=== PATIENT | female | born 1990 | race Caucasian/White ===

== ENCOUNTER 2017-05-14 18:35 | Emergency (ER) | END 2017-05-15 02:42 | disposition left against medical advice (07) ==

== ENCOUNTER 2018-02-27 19:25 | Emergency (ER) | payer OTHER ==
[~2018-02-27] VITALS: Ht 154.9 cm; Wt 57.9 kg
[2018-02-27 19:51] VITALS: Ht 154.9 cm; Wt 57.9 kg
[2018-02-27] MEDS ORDERED: ACETAMINOPHEN 500 MG TAB PO STA (21:39)
--- NOTE | 2018-02-27 21:50 | ERD ---
ER Documentation Chief Complaint Chief Complaint abdominal pain x 1 week. states 12 weeks HPI This is a 27-year-old female who presents here in the emergency department with complaints of pelvic pain for about a week. Also stated that she has vaginal bleeding in the last 24-48 hours. Also stated that she change vaginal pad twice in the last 24 hours. Stated that it was spotting to her vaginal pads. LMP: December 14, 2017. EDDIE: August 21, 2018. A1. Denies headache, dizziness, blurry vision, changes in vision, neck pain, neck stiffness, throat pain, difficulty swallowing, difficulty breathing lying flat, loss of bowel bladder control, urinary symptoms, vaginal discharge, trauma, injury, falls, recent surgery in the last 3 weeks, recent travel, recent long travel, leg pain, difficulty walking, numbness or tingling sensation, recent exposure to any illness, recent antibiotic use in the last 3 months, fever, chills. ROS All systems reviewed and are negative except as per history of present illness. Medications Home Meds Active Scripts Vit No.124/Iron/FA ( Vitamin Tablet) 1 Each Tablet, 1 EACH PO DAILY, #30 TAB Prov:TRINHILABANELIAR F 02/27/18 Acetaminophen* (Tylophen*) 500 Mg Capsule, 1 CAP PO Q6H PRN for PAIN AND OR ELEVATED TEMP, #20 CAP Prov:PASILABAN,ELIAR F 02/27/18 Allergies Allergies: Coded Allergies: No Known Drug Allergies (Verified Allergy, Unknown, 05/14/17) PMhx/Soc Medical and Surgical Hx: pt denies Medical Hx, pt denies Surgical Hx History of Surgery: No Anesthesia Reaction: No Hx Neurological Disorder: No Hx Respiratory Disorders: No Hx Cardiac Disorders: No Hx Psychiatric Problems: No Hx Miscellaneous Medical Probl: No Hx Alcohol Use: No Hx Substance Use: No Hx Tobacco Use: No Smoking Status: Never smoker Physical Exam Vitals Vital Signs Date Temp Pulse Resp B/P (MAP) Pulse Ox O2 O2 Flow FiO2 Time Delivery Rate 02/28/18 98.5 62 20 114/75 99 Room Air 00:17 (88) 02/27/18 98.2 68 18 102/58 99 19:51 (73) Physical Exam Const: No acute distress Head: Atraumatic Eyes: Normal Conjunctiva ENT: Normal External Ears, Nose and Mouth. Neck: Full range of motion. No meningismus. Resp: Clear to auscultation bilaterally Cardio: Regular rate and rhythm, no murmurs Abd: Soft, non tender, non distended. Normal bowel sounds. Negative Jensen sign. Negative Minda sign (heel jar test). Negative psoas sign. Negative Rovsing sign. Skin: No petechiae or rashes Back: No midline or flank tenderness. No CVA tenderness. Ext: No cyanosis, or edema Neur: Awake and alert. No neurological deficits. Psych: Normal Mood and Affect Result Diagram: 02/27/18224302/27/182243 Results 24 hrs Laboratory Tests Test 02/27/18 22:44 White Blood Count 7.2 10^3/ul Red Blood Count 4.05 10^6/ul Hemoglobin 12.8 g/dl Hematocrit 37.6 % Mean Corpuscular Volume 92.8 fl Mean Corpuscular Hemoglobin 31.6 pg Mean Corpuscular Hemoglobin Concent 34.0 g/dl Red Cell Distribution Width 13.1 % Platelet Count 316 10^3/UL Mean Platelet Volume 9.7 fl Immature Granulocytes % 0.100 % Neutrophils % 58.5 % Lymphocytes % 33.3 % Monocytes % 5.8 % Eosinophils % 1.9 % Basophils % 0.4 % Nucleated Red Blood Cells % 0.0 /100WBC Immature Granulocytes # 0.010 10^3/ul Neutrophils # 4.2 10^3/ul Lymphocytes # 2.4 10^3/ul Monocytes # 0.4 10^3/ul Eosinophils # 0.1 10^3/ul Basophils # 0.0 10^3/ul Nucleated Red Blood Cells # 0.0 10^3/ul Urine Color COLORLESS Urine Clarity CLEAR Urine pH 7.0 Urine Specific Gibson 1.002 Urine Ketones NEGATIVE mg/dL Urine Nitrite NEGATIVE mg/dL Urine Bilirubin NEGATIVE mg/dL Urine Urobilinogen NEGATIVE mg/dL Urine Leukocyte Esterase NEGATIVE Jennifer/ul Urine Microscopic RBC 1 /HPF Urine Microscopic WBC 1 /HPF Urine Squamous Epithelial Cells FEW /HPF Urine Bacteria FEW /HPF Urine Hemoglobin 2+ mg/dL Urine Glucose NEGATIVE mg/dL Urine Total Protein NEGATIVE mg/dl Sodium Level 139 mmol/L Potassium Level 3.9 mmol/L Chloride Level 102 mmol/L Carbon Dioxide Level 25 mmol/L Anion Gap 12 Blood Urea Nitrogen 9 mg/dl Creatinine 0.43 mg/dl Est Glomerular Filtrat Rate mL/min > 60 mL/min Glucose Level 91 mg/dl Calcium Level 9.1 mg/dl Total Bilirubin 0.2 mg/dl Direct Bilirubin 0.00 mg/dl Indirect Bilirubin 0.2 mg/dl Aspartate Amino Transf (AST/SGOT) 20 IU/L Alanine Aminotransferase (ALT/SGPT) 15 IU/L Alkaline Phosphatase 68 IU/L Total Protein 7.2 g/dl Albumin 4.2 g/dl Globulin 3.00 g/dl Albumin/Globulin Ratio 1.40 Amylase Level 135 U/L Lipase 49 U/L Beta HCG, Quantitative 38807.0 mIU/ml Current Medications Medications Dose Sig/Maribel Start Time Status Last (Trade) Ordered Route PRN Stop Time Admin Dose Reason Admin Sodium 1,000 ml @ Q1H ONCE 02/27/18 DC 02/27/18 Chloride 1,000 mls/hr IV 22:00 22:49 02/27/18 22:59 500 mg ONCE STAT 02/27/18 DC 02/27/18 Acetaminophen PO 21:39 23:02 (Tylenol 02/27/18 Tab) 21:45 Procedures/MDM Diagnostic tests: Urinalysis: Reviewed. Culture urine: Sent. Blood works: Reviewed. Beta-hCG quantitative: 12,000. Type and Rh: O+. OB ultrasound: Single intrauterine gestation of approximate gestational age of 8 weeks 2 days by ultrasound criteria with no heartbeat. Rule out demise. Small subchorionic hemorrhage. Normal ovaries. consulted with Dr. Livingston(OB) who stated to give the patient precautions and have her follow-up with her OB. She also stated to have the patient come back here emergency department for worsening symptoms. Treatment: Saline lock. Normal saline IV bolus. Tylenol p.o. Re-evaluation: Denies active bleeding. No signs of hemorrhaging. Differential diagnosis I have low suspicion for ectopic , severe hemorrhage, sepsis. Final diagnosis: Vaginal bleeding in . Prescription: Tylenol. vitamins. Follow-up with OB in the next 24-48 hours. Come back here in the emergency department for any new symptoms or any worsening symptoms. All questions and concerns were answered. Patient and family members verbalized understanding and agreed with plan of care. Hemodynamically stable on discharge. Departure Diagnosis: Primary Impression: Vaginal bleeding affecting early Condition: Stable Additional Instructions: Follow-up with OB in the next 24-48 hours. Come back here in the emergency department for any new symptoms or any worsening symptoms. TITUS MINA Feb 27, 2018 21:50
[2018-02-27] MEDS ORDERED: SOD CHLORIDE 0.9% 1,000 ML IV ONE (22:00)
[2018-02-27] MEDS ORDERED: ACET500C5 PO (23:58)
[2018-02-27] MEDS ORDERED: PREN-93 PO (23:58)
[2018-02-28 00:17] VITALS: BP 114/75; PULSE 62; RESP 20
== END 2018-02-28 00:19 | disposition home or self-care (01) ==
LOC: FTE 19:25
DX: O20.9 Hemorrhage in early pregnancy, unspecified (principal); R10.2 Pelvic and perineal pain; Z3A.12 12 weeks gestation of pregnancy
CPT/HCPCS: 76801; 76817; 80053; 81001; 82150; 83690; 84702; 85025; 86900; 86901; 87086; J7030; Z7502; Z7610